=== PATIENT | female | born 1990 | race Caucasian/White ===

== ENCOUNTER → 2022-04-21 04:29 | Observation (INO) ==
[2022-04-21 04:26] LABS: Candida DNA Not Detected (Not Detect); Gardnerella DNA Not Detected (Not Detect); Trichomonas DNA Not Detected (Not Detect)
[~2022-04-21 04:29] MED LIST: 0.9 % Sodium Chloride 1,000 ML IVC ONE; Ringers Solution, Lactated 1,000 ML IVC SCH; cefTRIAXone 1,000 MG in 0.9 % Sodium Chloride Mini Bag 100 ML IVPB ONE
== END | disposition home or self-care (01) ==
LOC: 1NENULAB
PROVIDERS: ADMIT Obstetrics & Gynecology; ATTEND Obstetrics & Gynecology